=== PATIENT | female | born 1960 | race Caucasian/White ===

== ENCOUNTER → 2019-07-23 | Outpatient (CLI) | payer MEDICARE, MEDICAID ==
--- NOTE | 2019-07-23 16:52 | Diagnostic Imaging Report ---
PATIENT HISTORY: CHEST PAIN. Shortness of breath TECHNIQUE: Two views of the chest. COMPARISON: None FINDINGS: The lung volumes are normal. No focal consolidation is seen. No large pleural effusion or pneumothorax is seen. The cardiomediastinal silhouette is normal in size and contour. No acute osseous abnormality is seen. 2 small metal clips or duc are noted in the supraclavicular region bilaterally. IMPRESSION: No acute pulmonary abnormality seen. Dictated by: Dictated on workstation # [id number]
== END ==
LOC: LAB FS 16:28
PROVIDERS: ATTEND Nurse Practitioner
DX: R07.9 Chest pain, unspecified (principal); R06.02 Shortness of breath
CPT/HCPCS: 71046

== ENCOUNTER 2023-01-11 08:09 | Outpatient (CLI) | payer MEDICARE, MEDICAID ==
[~2023-01-11] VITALS: Ht 157.5 cm; Wt 67.6 kg
[2023-01-11] MEDS ORDERED: HYDR28OI2 TP (13:16)
[2023-01-11] MEDS ORDERED: LEVO-129 PO (13:16)
[2023-01-11] MEDS ORDERED: ZOLP5TAB7 PO (13:16)
[2023-01-11] MEDS ORDERED: CETI10TA17 PO (13:16)
[2023-01-30] MEDS ORDERED: TRAM50TA3 PO (10:30)
== END 2023-01-29 13:57 | disposition home or self-care (01) ==
LOC: PREOP 08:09
PROVIDERS: ATTEND Surgery
DX: Z01.818 Encounter for other preprocedural examination (principal)

== ENCOUNTER 2023-01-21 09:43 | Day surgery (SDC) | payer MEDICARE, MEDICAID ==
[~2023-01-21] VITALS: Ht 157.5 cm; Wt 67.6 kg
[~2023-01-21 09:43] MED LIST: CETI10TA17 PO; HYDR28OI2 TP; LEVO-129 PO; ZOLP5TAB7 PO
[2023-01-21] MEDS ORDERED: LACTATED RINGERS 1,000 ML 1,000 ML IV STA (10:15)
[2023-01-21] MEDS ORDERED: HURRICAINE EXT TUBE (BENZOCAINE) XX PRN (10:15)
--- NOTE | 2023-01-21 10:29 | Progress Note-Pre Operative ---
Pre-Operative Progress Note Date of Available H&P: Jan 15, 2023 Date H&P Reviewed: Jan 21, 2023 Time H&P Reviewed: 10:27 History & Physical: H&P Reviewed, Patient Examed, No changes noted Pre-Operative Diagnosis: Dysphagia, Screening ELIUD MCRAE DO Jan 21, 2023 10:29
[2023-01-21 10:51] VITALS: BP 111/77
[2023-01-21 11:30] VITALS: BP 83/59
--- NOTE | 2023-01-21 11:31 | Anesthesia-General Post-Op ---
MAC Patient Condition Mental Status/LOC: Same as Preop Cardiovascular: Satisfactory Nausea/Vomiting: Absent Respiratory: Satisfactory Pain: Controlled Complications: Absent Post Op Complications Complications None Follow Up Care/Instructions Patient Instructions None needed. Anesthesiology Discharge Order Discharge Order Patient is doing well, no complaints, stable vital signs, no apparent adverse anesthesia problems. No complications reported per nursing. WM CADET CRNA Jan 21, 2023 11:31
[2023-01-21 11:35] VITALS: BP 98/54
--- NOTE | 2023-01-21 11:35 | Progress Note-Post Operative ---
Post-Operative Progess Note Surgeon (s)/Farm Management Adviser (s) Surgeon ELIUD MCRAE DO Farm Management Adviser: Reggie Emery, MSIII Pre-Operative Diagnosis Dysphagia, Screening Post-Operative Diagnosis Gastritis Hiatal hernia Polyp diverticula int hemorrhoids Procedure & Operative Findings Date of Procedure 01/21/23 Procedure Performed/Findings EGD with biopsy Colonoscopy with snare polypectomy PROCEDURE NOTE: After informed consent was obtained, the patient was brought to the endoscopy suite, placed in bed in left lateral decubitus position. She was administered IV sedation by the MANUFACTURER REPRESENTATIVE who then monitored vitals the entire time, heart rate, blood pressure and pulse ox and the scope was inserted down the mouth through the esophagus into the stomach. On the way down, noted some mild esophagitis, took a picture, pushed into the stomach, pushed past the antrum into the duodenum. Duodenum looked good. Pulled back, noted what looked like a healed ulcer near the antrum and did a biopsy of this antral ulcer. Then retroflexed the scope, saw a large Grade IV AFS hiatal hernia, took a picture of this and then pulled the scope into the GE junction, took another picture of the hiatal hernia and then did a biopsy of the GE junction. Pushed the scope back into the stomach, suctioned all the air out of the stomach. At this point pulled the scope up the esophagus and out the mouth. Switched camera, switched gloves, went down below and started the colonoscopy. Pushed all the way to about 120 cm and pushed into the cecum, took a picture of appendiceal orifice and noted the ileocecal valve. Right next to the appendiceal orifice was a polyp, took a picture and then removed with with a snare. Then slowly withdrew the scope insufflating to look circumferentially at the german starting in the cecum, up the ascending colon to the hepatic flexure, then down the transverse colon, splenic flexure, into the descending colon down into the sigmoid. I saw some very small diverticula on the left side of colon. Finally into the rectal vault, attempted to retroflexe the scope but I was unsuccessful. Took a picture of the internal hemorrhoids as I pulled the scope out. The patient tolerated the procedure and she recovered in the endoscopy suite. Recommended for repeat colonoscopy in 10 years Anesthesia Type IV sedation by MANUFACTURER REPRESENTATIVE Estimated Blood Loss Estimated blood loss (mL): scant Specimens/Packing Specimens Removed antral bx GE jxn bx Cecal polyp ELIUD MCRAE DO Jan 21, 2023 11:35
--- NOTE | 2023-01-21 11:37 | Endoscopy Discharge Instruct ---
Endo Procedure/Findings Findings 1.: Hiatal Hernia, Gastritis 2.: Gastric Ulcer 3.: Polyp 4.: Diverticulosis, Internal Hemorrhoids Discharge Instructions - Activity: You might feel a little sleepy until tomorrow. This is due to the medicine you received to relax you. Until tomorrow, you should: NOT drive a car, operate machinery or power tools. NOT drink any alcoholic beverages. NOT make any important decisions or sign importortant papers. Do not return to work until tomorrow, unless otherwise instructed. Resume previous activities tomorrow. Diet: Start by taking liquids. If you tolerate liquids, advance to solid food. 1.: EGD in 6-8 weeks 2.: Colonscopy in 5 years Notify Physician - If you experience excessive bleeding, unusual abdominal pain, fever, or chest pain, contact your doctor immediately. Follow-Up: Other Follow up in my office in one week ELIUD MCRAE DO Jan 21, 2023 11:37
[2023-01-21 11:40] VITALS: BP 104/63
[2023-01-21 12:45] VITALS: BP 122/78
== END 2023-01-21 12:45 | disposition home or self-care (01) ==
LOC: ENDO 09:43
PROVIDERS: ATTEND Surgery
DX: Z12.11 Encounter for screening for malignant neoplasm of colon (principal); D12.0 Benign neoplasm of cecum; K57.30 Diverticulosis of large intestine without perforation or abscess without bleeding; K29.50 Unspecified chronic gastritis without bleeding; K64.8 Other hemorrhoids; K25.9 Gastric ulcer, unspecified as acute or chronic, without hemorrhage or perforation; K44.9 Diaphragmatic hernia without obstruction or gangrene; K21.00 Gastro-esophageal reflux disease with esophagitis, without bleeding; K80.10 Calculus of gallbladder with chronic cholecystitis without obstruction; Z80.0 Family history of malignant neoplasm of digestive organs

== ENCOUNTER 2023-01-29 15:38 | Outpatient (CLI) | payer MEDICARE, MEDICAID ==
[~2023-01-29] VITALS: Ht 157.5 cm; Wt 68.2 kg
[2023-01-30] MEDS ORDERED: TRAM50TA3 PO (10:30)
== END 2023-01-29 16:56 | disposition home or self-care (01) ==
LOC: PREOP 15:38
PROVIDERS: ATTEND Surgery
DX: Z01.818 Encounter for other preprocedural examination (principal)

== ENCOUNTER 2023-01-30 06:53 | Day surgery (SDC) | payer MEDICARE, MEDICAID ==
[~2023-01-30] VITALS: Ht 157.5 cm; Wt 68.2 kg
[2023-01-30] VITALS (11 sets, daily range): BP systolic 115–148; BP diastolic 60–95
[2023-01-30] MEDS ORDERED: LIDOCAINE 2% w/EPI 1:100,000 20 ML VIAL ONE (07:29)
[2023-01-30] MEDS ORDERED: NS (IVPB) 50 ML 50 ML ONE (07:39)
[2023-01-30] MEDS ORDERED: ceFAZolin INJECTION 2,000 MG ONE (07:39)
[2023-01-30] MEDS ORDERED: ceFAZolin INJECTION 2,000 MG in NS (IVPB) 50 ML 50 ML IV ONE (07:45)
[2023-01-30] MEDS ORDERED: MIDAZOLAM INJ 2 MG/2 ML VIAL ONE (08:06)
[2023-01-30] MEDS ORDERED: ROCURONIUM 50 MG/5 ML VIAL IV ONE (08:06)
[2023-01-30] MEDS ORDERED: proPOfol INJECTION 200 MG/20 ML VIAL IV ONE (08:06)
[2023-01-30] MEDS ORDERED: LIDOCAINE PF 2% 5 ML VIAL ONE (08:06)
[2023-01-30] MEDS ORDERED: ONDANSETRON INJECTION 4 MG/2 ML (SDV) ONE (08:06)
[2023-01-30] MEDS ORDERED: fentaNYL INJECTION 100 MCG/2 ML VIAL ONE ×2 (08:06→10:57)
[2023-01-30] MEDS ORDERED: LACTATED RINGERS 1,000 ML 1,000 ML IV PRN (08:30)
--- NOTE | 2023-01-30 08:43 | Progress Note-Pre Operative ---
Pre-Operative Progress Note Date of Available H&P: Jan 11, 2023 Date H&P Reviewed: Jan 30, 2023 Time H&P Reviewed: 08:37 History & Physical: H&P Reviewed, Patient Examed, No changes noted Pre-Operative Diagnosis: cholecystitis/cholelithiasis ELIUD MCRAE DO Jan 30, 2023 08:43
[2023-01-30] MEDS ORDERED: GLYCOPYRROLATE INJ 0.2 MG/ML 2 ML VIAL ONE ×2 (09:15→10:26)
[2023-01-30] MEDS ORDERED: NEOSTIGMINE 1 MG/1ML 10 ML VIAL ONE (10:26)
[2023-01-30] MEDS ORDERED: SEVOFLURANE (ULTANE) 15 ML INHAL SOLN ONE (10:27)
--- NOTE | 2023-01-30 10:29 | Progress Note-Post Operative ---
Post-Operative Progess Note Surgeon (s)/Audio/Video Technician (s) Surgeon ELIUD MCRAE DO Audio/Video Technician: Erinn Pre-Operative Diagnosis cholecystitis/cholelithiasis Post-Operative Diagnosis same Procedure & Operative Findings Date of Procedure 01/30/23 Procedure Performed/Findings PROCEDURE: Laparoscopic cholecystectomy with intraoperative cholangiogram - Robotic. COMPLICATIONS: None. PROCEDURE: The patient was taken to the operating suite and was prepped and draped in heidy rile fashion. A surgical pause was performed. Just superior to the umbilicus, a 12 mm incision was made. Dissection was taken down to the fascia, which was then scored and grasped with a Maricarmen and the abdomen was then entered. An 0 Vicryl suture was placed in a [id number] fashion and a Tamez trocar was placed and secured. Pneumoperitoneum was achieved and then placed three 8mm robotic trochar ports under direct visualization. Came across in a straight line and the robot was docked. The gallbladder was then grasped and elevated with the 4th arm. The cystic duct and cystic artery were then dissected out with hook cautery. Clip was placed on the distal portion of the cystic duct which was then partially transected. Dr. Plasencia was needed to place the arrow catheter; it was inserted into the duct. We had to completely undock the robot to perform cholangiogram. The cholangiogram was then performed. No filling defects and contrast made its way into the duodenum. Catheter removed. Clips were placed on proximal portion of the cystic duct and then the duct was then transected. Clips were placed along the proximal and distal portion of the cystic artery which was then transected. Hook cautery was used to dissect the gallbladder from the gall- bladder fossa achieving hemostasis. Dr. Plasencia placed the gallbladder was into an Endobag and removed through the 12 mm trocar site. The abdomen was then reinspected and there were no signs of active bleeding. Hemostasis had been achieved. The 12 mm fascial defect was then closed with 0 Vicryl suture that had been placed in a figure- of-eight fashion. The abdomen was then desufflated, thetrocars were removed. The abdomen was then washed and dried. The skin was then closed using 4-0 Monocryl in a subcuticular fashion. The abdomen was washed and dried and Skin Affix was place over incisions. Patient tolerated the procedure well without any complications and was taken to the recovery room in stable condition. Dr. Plasenica helped make incisions and close incisions. Anesthesia Type GET Estimated Blood Loss Estimated blood loss (mL): scant Specimens/Packing Specimens Removed GB and contents ELIUD MCRAE DO Jan 30, 2023 10:29
[2023-01-30] MEDS ORDERED: TRAM50TA3 PO (10:30)
--- NOTE | 2023-01-30 10:31 | Discharge Inst-Surgical ---
Discharge Inst-Surgical Depart Medication/Instructions New, Converted or Re-Newed RX: Transmitted to Pharmacy Patient Instructions Follow up Appt: Make appointment for 1 week. [phone] Instructions: No lifting greater than 20 pounds. No strenuous activity. May shower in 24 hours, no tub bath or soaking. Use incentive spirometer at home as directed. No Smoking Skin/Wound Care: May remove bandages in am. You need to leave the Dermabond on incision it will fall off on it's own. Symptoms to Report: Appetite Changes, Extremity Discoloration, Numbness/Tingling, Swelling Increased, Bleeding Excessive, Eyesight Changes, Pain Increased, Urine Color Change, Constipation(Persistent), Fever over 101 degree F, Pain/Pressure in chest, Urinating Difficulty, Cough Up/Vomit Blood, Heart Beat Irreg/Pounding, Pain/Pressure in jaw, Cramps in feet or legs, Lightheadedness, Pain/Pressure in shoulder, Diarrhea(Persistent), Memory Changes Suddenly, Questions/Concerns, Weight gain consecutive days, Dizziness/Fainting, Nausea/Vomiting, Shortness of Breath, Weight gain over 2 pounds If questions or concerns contact your physician Or seek help at emergency department. Activity Activity as Tolerated: Yes Activity Instructions: Avoid Stress to Incision Driving Instructions: No Driving/Refer to Diet Discharge Diet: Avoid Fatty Foods, Low Fat/Low Cholesterol Diet After 24 Hours: Clear Liquid if Nauseous If Any Problems/Questions/Issu: Contact Your Physician, Go to Emergency Room Skin/Wound Care Infection Signs and Symptoms: Increased Redness, Foul Odor of Wound, Increased Drainage, Skin Itchy or Has a Rash, Increased Swelling, Temperature Above 101 F Bathing Instructions: Shower Stitches/[place]/Dermabond Dis: Cathyond ELIUD MCRAE DO Jan 30, 2023 10:31
[2023-01-30] MEDS ORDERED: fentaNYL INJECTION 100 MCG/2 ML VIAL IVP ONE (10:45)
[2023-01-30] MEDS ORDERED: ONDANSETRON INJECTION 4 MG/2 ML (SDV) IVP PRN (10:45)
--- NOTE | 2023-01-30 10:47 | Anesthesia-General Post-Op ---
General Patient Condition Mental Status/LOC: Same as Preop Cardiovascular: Satisfactory Nausea/Vomiting: Absent Respiratory: Satisfactory Pain: Controlled Complications: Absent Post Op Complications Complications None Follow Up Care/Instructions Patient Instructions None needed. Anesthesia/Patient Condition Patient Condition Patient is doing well, no complaints, stable vital signs, no apparent adverse anesthesia problems. No complications reported per nursing. BEV QUINONES CRNA Jan 30, 2023 10:47
--- NOTE | 2023-01-30 15:35 | Diagnostic Imaging Report ---
INDICATION: Cholelithiasis, undergoing cholecystectomy. FINDINGS: Single spot as well as a single cine intraoperative cholangiogram image submitted. There is cannulation of the extra hepatic biliary tree. Images demonstrate contrast opacification of the biliary system. Biliary tree is not significantly dilated. There was no persistent filling defect to indicate a retained stone. Flow was present into the duodenum. IMPRESSION: Negative laparoscopic cholangiogram. Dictated by: Dictated on workstation # [id number]
== END 2023-01-30 13:55 | disposition home or self-care (01) ==
LOC: SDC 06:53
PROVIDERS: ATTEND Surgery
DX: K80.10 Calculus of gallbladder with chronic cholecystitis without obstruction (principal); K25.9 Gastric ulcer, unspecified as acute or chronic, without hemorrhage or perforation; K21.00 Gastro-esophageal reflux disease with esophagitis, without bleeding; K44.9 Diaphragmatic hernia without obstruction or gangrene; D12.0 Benign neoplasm of cecum; K64.0 First degree hemorrhoids
CPT/HCPCS: 76000; 88304; 94664